=== PATIENT | female | born 2000 | race Caucasian/White ===

== ENCOUNTER 2024-12-06 13:18 | Outpatient (CLI) | payer OTHER, SELFPAY ==
[2024-12-08 03:08] LABS: CA 19-9 6 U/mL (<34); CA-125 19 U/mL (<35)
--- OUTSIDE RECORDS SUMMARY | 2024-12-09 13:31 | XMS_ITS | Referral Summary ---
Author Organization [address] Address [address] [place] [id number] Care Team Providers Care Software Engineer Sales Name Role Phone Unknown, Notinfile Primary Care Provider Unavail able Encounters Date Type Department Care Team Description 10/22/2024 5:49 AM [facility] - 10/22/2024 7:41 AM [facility] Emergency [facility] Emergency Department [address] [place] [address] Pablo Snow MD Gastroenteritis (Primary Dx); Cyst of left ovary Discharge Disposition: Discharge to home or self care from Last 3 Months Allergies Active Allergy Reactions Criticality Noted Date Comments Amoxicillin Rash Medium 01/27/2024 Amoxicillin-Pot Clavulanate Rash,Hives High 09/09/20 20 Medications triamcinolone (KENALOG) 0.1 % lotion triamcinolone acetonide 0.1 % lotion Active tretinoin (RETIN-A) 0.05 % cream tretinoin 0.05 % topical cream Active Lo Loestrin Fe 1 mg-10 mcg (24)/10 mcg (2) tablet per tablet 11/25/19 23 Active mometasone (ELOCON) 0.1 % ointment 11/07/20 22 Active ketoconazole (NIZORAL) 2 % shampoo ketoconazole 2 % shampoo Active ISOtretinoin (ABSORCA) 40 mg capsule Accutane 40 mg capsule Active ISOtretinoin (ABSORICA) 30 mg capsule Accutane 30 mg capsule Active drospirenone-ethin yl estradioL (MAIK,OCELLA) 3-0.03 mg per tablet Take 1 tablet by mouth daily Active norethindrone-e.es tradioL-iron (Lo Loestrin Fe) 1 mg-10 mcg (24)/10 mcg (2) tablet per tablet Lo Loestrin Fe 1 mg-10 mcg (24)/10 mcg (2) tablet Active benzonatate (TESSALON) 100 mg capsuleIndications :Cough Take 1 capsule (100 mg total) by mouth 3 (three) times a day as needed for cough 42 capsule 01/27/20 24 Active ondansetron ODT (ZOFRAN-ODT) 4 mg disintegrating tablet Take 1 tablet (4 mg total) by mouth every 8 (eight) hours as needed for nausea or vomiting 20 tablet 10/22/20 24 Active Active Problems Problem Noted Date Diagnosed Date Arthralgia of right elbow 10/29/2022 Post-traumatic osteoarthritis 09/16/2022 Closed fracture of medial condyle of humerus Immunizations Name Administration Dates Next Due DTaP 07/01/2006,04/27/2001,03/04/2001 ,2000 HPV, Quadrivalent 08/31/2012 Hep A, Pediatric 08/31/2012 Hep B, Unspecified 02/02/2002,2000, 000 IPV 07/01/2006,04/27/2001,03/04/2001 ,2000 MMR 07/01/2006,02/02/2002 Meningococcal MCV4P (Menactra) 06/09/2018,2011 PPD TEST 07/23/2023 Tdap 08/31/2012 Varicella 08/31/2012,07/01/2006 Social History Tobacco Use Types Packs/Day Years Used Date Smoking Tobacco: Never Smokeless Tobacco: Never Tobacco Cessation:Counseling Given: Not Answered Personal Safety Answer Date Recorded Have you ever been in or are you currently in a harmful physical or emotional relationship or is someone making you feel afraid or unsafe? Denies 10/22/2024 Comments No Sex and Gender Information Value Date Recorded Sex Assigned at Not on file Legal Sex Female 4:49 AM [facility] Gender Identity Not on file Sexual Orientation Not on file Last Filed Vital Signs Vital Sign Reading Time Taken Comments Blood Pressure 115/75 10/22/2024 7:35 AM [facility] Pulse 86 10/22/2024 7:35 AM [facility] Temperature 36.2 ??C (97.2 ??F) 10/22/2024 5:15 AM CS T Respiratory Rate 16 10/22/2024 5:15 AM [facility] Oxygen Saturation 100% 10/22/2024 7:35 AM [facility] Inhaled Oxygen Concentration - - Weight 62.3 kg (137 lb 5.6 oz) 10/22/2024 5:15 A M [facility] Height 167.6 cm (5' 6 ) 10/22/2024 5:15 AM [facility] Body Mass Index 22.17 10/22/2024 5:15 AM [facility] Plan of Treatment Not on file Procedures Procedure Name Priority Date/Time Associated Diagnosis Comments CT ABDOMEN PELVIS W CONTRAST ED 10/22/2024 6:31 AM [facility] POCT HCG, URINE Routine 10/22/2024 5:31 AM [facility] INFLUENZA A/B, RSV, AND COVID-19 PCR STAT 10/22/2024 5:27 AM [facility] EGFR STAT 10/22/2024 5:25 AM [facility] URINALYSIS, MICROSCOPIC ONLY STAT 10/22/2024 5:25 AM [facility] DIFFERENTIAL AUTO STAT 10/22/2024 5:2 5 AM [facility] LIPASE STAT 10/22/2024 5:25 AM [facility] COMPREHENSIVE METABOLIC PANEL STAT 10/22/2024 5:25 AM [facility] CBC WITH AUTO DIFFERENTIAL STAT 10/22/2024 5:25 AM [facility] URINALYSIS AND REFLEX TO MICROSCOPIC AND CULTURE STAT 10/22/2024 5:25 AM [facility] from Last 3 Months Results * CT Abdomen Pelvis W Contrast (10/22/2024 6:31 AM [facility]) Anatomical Region Laterality Modality Body N/A Computed Tomogra phy 10/22/2024 6:40 AM [facility] Narrative 10/22/2024 6:43 AM [facility] EXAM DESCRIPTION: ?? CT ABDOMEN PELVIS W CONTRAST REASON FOR STUDY: ?? abdominal cramping, diarrhea, elevated WBC 18.9 ?? TECHNIQUE: CT scan of the abdomen and pelvis performed with intravenous and ?? without ??oral contrast using helical scanning technique with dynamic intravenous contrast injection. Reconstructed coronal and sagittal MPR images reviewed. All images stored on PACS. Automated exposure control was used as a dose optimization technique for this examination. CONTRAST TYPE/DOSE: ?? 100mL of IOVERSOL 350 MG IODINE/ML INTRAVENOUS SYRINGE ?? injected via ?? intravenous COMPARISON: ?? None FINDINGS: LOWER CHEST: ?? No significant pulmonary abnormalities. No effusion. LIVER: ?? Normal size. ??No identified cystic or solid masses. GALLBLADDER: ?? Unremarkable BILE DUCTS: ?? No intrahepatic or extrahepatic ductal dilatation. SPLEEN: ?? Normal size. ??No focal lesions. PANCREAS: ?? No identified cystic or solid masses. No significant calcifications. No adjacent inflammation or peripancreatic fluid collections. Pancreatic duct not dilated. ?? ADRENALS: ?? Normal. KIDNEYS/URINARY TRACT: ?? No identified significant cystic or solid masses. No visualized stones. No hydronephrosis or hydroureter. Symmetric enhancement. ? Urinary bladder is unremarkable. GI: ?? There appears to be mildly prominent enhancement of much of the bowel wall along with fluid throughout much of the bowel. ??This includes small bowel and colon. ?? No dilated bowel is seen to suggest obstruction or ileus. ??This may represent a enteritis. PERITONEUM: ?? No ascites or free air. RETROPERITONEUM: ?? No mass or adenopathy. REPRODUCTIVE: ?? There is a 7 cm cyst in the right posterior pelvis which might originate from the right ovary. ??This appears to be a thin-walled simple cyst. VASCULATURE: ?? No abdominal aortic aneurysm. MUSCULOSKELETAL: ?? No significant abnormality. OTHER: ?? No other abnormality. IMPRESSION: Mildly prominent enhancement of much of the bowel wall along with fluid throughout much of the bowel. This may represent a enteritis. 7 cm cyst in the right posterior pelvis likely originating from the right ovary. ??Follow-up pelvic ultrasound is recommended for further evaluation. THIS IS AN ELECTRONICALLY VERIFIED FINAL REPORT 10/22/2024 6:43 AM - Electronically signed by ??Navid Bradshaw M.D. KH: [id number] D: ??10/22/2024 6:43 AM T: ??10/22/2024 6:43 AM Report ID: [id number] Reading Location: ??[id number] Procedure Note Navid Bradshaw MD - 10/22/2024 EXAM DESCRIPTION: CT ABDOMEN PELVIS W CONTRAST REASON FOR STUDY: abdominal cramping, diarrhea, elevated WBC 18.9 TECHNIQUE: CT scan of the abdomen and pelvis performed with intravenousand without oral contrast using helical scanning technique with dynamic intravenous contrast injection. Reconstructed coronal and sagittal MPRimages reviewed. All images stored on PACS. Automated exposure control was usedas a dose optimization technique for this examination. CONTRAST TYPE/DOSE: 100mL of IOVERSOL 350 MG IODINE/ML INTRAVENOUSSYRINGE injected via intravenous COMPARISON: None FINDINGS: LOWER CHEST: No significant pulmonary abnormalities. Noeffusion. LIVER: Normal size. No identified cystic or solid masses. GALLBLADDER: Unremarkable BILE DUCTS: No intrahepatic or extrahepatic ductal dilatation. SPLEEN: Normal size. No focal lesions. PANCREAS: No identified cystic or solid masses. No significant calcifications. No adjacent inflammation or peripancreatic fluidcollections. Pancreatic duct not dilated. ADRENALS: Normal. KIDNEYS/URINARY TRACT: No identified significant cystic or solid masses.No visualized stones. No hydronephrosis or hydroureter. Symmetricenhancement. Urinary bladder is unremarkable. GI: There appears to be mildly prominent enhancement of much of thebowel wall along with fluid throughout much of the bowel. This includes smallbowel and colon. No dilated bowel is seen to suggest obstruction or ileus.This may represent a enteritis. PERITONEUM: No ascites or free air. RETROPERITONEUM: No mass or adenopathy. REPRODUCTIVE: There is a 7 cm cyst in the right posterior pelvis whichmight originate from the right ovary. This appears to be a thin-walled simplecyst. VASCULATURE: No abdominal aortic aneurysm. MUSCULOSKELETAL: No significant abnormality. OTHER: No other abnormality. IMPRESSION: Mildly prominent enhancement of much of the bowel wall along with fluid throughout much of the bowel. This may represent a enteritis. 7 cm cyst in the right posterior pelvis likely originating from the right ovary. Follow-up pelvic ultrasound is recommended for furtherevaluation. THIS IS AN ELECTRONICALLY VERIFIED FINAL REPORT 10/22/2024 6:43 AM - Electronically signed by Navid Bradshaw M.D. KH: KH Report ID: [id number] Reading Location: [place] [address] Samer Lynne Beach DO IMG CT PROCEDURES Jenniffer l Result * POCT hCG, urine (10/22/2024 5:31 AM [facility]) Pathologist [facility] HCG, ur, POC Negative Negative Lot Number [id number] QC Backgroud Clear Acceptable QC Control Line Acceptable Urine 10/22/2024 5:31 AM [facility] Pablo Snow MD POINT OF CARE TEST ORD ERABLES Final Result * Influenza A/B, RSV, and COVID-19 PCR Nasopharyngeal (10/22/2024 5:27 AM [facility]) [facility] COVID-19 RNA Negative Negative Comment:Testing performed by : [address] [address] Influenza A RNA Negative Negative [facility] Comment:Testing performed by : [address] [address] Influenza B RNA Negative Negative [facility] Comment:Testing performed by : [address] [address] RSV RNA Negative Negative [facility] Comment: Interpretive data: Testing performed by [facility]. This test is performed using the NPS Xpert Xpress CoV-2/Flu/RSV plus assay. This is a multiplex, real-time reverse transcriptase PCR assay intended for the qualitative detection of nucleic acid from SARS-CoV-2, influenza A, influenza B, and respiratory syncytial virus. This assay has been cleared by the [place] Food and Drug administration. The performance characteristics have been verified by the [facility]. ??Results must be considered in the clinical context, and a negative result does not rule out infection. Interpretive Data last revised 2023 Testing performed by: [facility], [address] [place] [address]., [address] Nasopharyngeal 10/22/2024 5: 27 AM [facility] 10/22/2024 5:30 AM [facility] Narrative [facility] - 10/22/2024 6:09 AM [facility] Is the Patient experiencing symptoms consistent with COVID?->Yes us Pablo Snow MD LAB MICROBIOLOGY - GEN ERAL ORDERABLES Final Result [facility] [address] [facility] Department [place] [address] * eGFR (10/22/2024 5:25 AM [facility]) eGFR >90 >=60 mL/min/1. 73 m2 Comment: Interpretive Data Reference Interval Normal ?>/= 90 mL/min/1.73m2 Mildly decreased* ? 60 - 89 mL/min/1.73m2 Mildly to moderately decreased ?45 - 59 mL/min/1.73m2 Moderately to severely decreased ??30 - 44 mL/min/1.73m2 Severely decreased ?15 - 29 mL/min/1.73m2 Kidney Failure ?< 15 ??mL/min/1.73m2 *Relative to young adult level Estimated glomerular filtration rate is determined by the 2020 CKD-EPI equation recommended by the National Kidney Foundation (A Unifying Approach to GFR Estimation: Recommendations of the NKF-ASK Task Force on Reassessing the Inclusion of Race in Diagnosing Kidney Disease, JASN 202). The CKD-EPI equation should not be used for patients with unstable renal function and has not been validated in children and those over 70. Current interpretive data was last reviewed 2021. Testing performed by: [facility], [address] [place] [address]., [address] Blood 10/22/2024 5:25 AM [facility] 10/22/2024 5:30 AM [facility] us Pablo Snow MD LAB BLOOD ORDERABLES F inal Result [facility] [address] [facility] Department [place] [address] * (ABNORMAL) Differential, auto (10/22/2024 5:25 AM [facility]) Neutrophil abs 17.4(H) 1.5 - 6.5 K/cumm Comment:Testing performed by : [address] [address] Imm gran abs 0.1 0.0 - 0.1 K/cumm BEN Comment:Testing performed by : [address] [address] Lymphocyte abs 0.4(L) 0.8 - 3.3 K/cumm BEN Comment:Testing performed by : [address] [address] Monocyte abs 1.0(H) 0.2 - 0.8 K/cumm BEN Comment:Testing performed by : [address] [address] Eosinophil abs 0.0 0.0 - 0.5 K/cumm BEN Comment:Testing performed by : [address] [address] Basophil abs 0.1 0.0 - 0.1 K/cumm BEN Comment:Testing performed by : [address] [address] Neutrophil pct 91.9 % BEN Comment: Interpretive Data Percent cell count reference ranges are not reported, since discordance with absolute values may lead to misinterpretation of CBC data. Current Interpretive Data was last revised on 2018. Testing performed by: [address] [address] Imm gran pct 0.4 % BEN Comment: Interpretive Data Percent cell count reference ranges are not reported, since discordance with absolute values may lead to misinterpretation of CBC data. Current Interpretive Data was last revised on 2018. Testing performed by: [address] [address] Lymphocyte pct 2.1 % [facility] Comment: Interpretive Data Percent cell count reference ranges are not reported, since discordance with absolute values may lead to misinterpretation of CBC data. Current Interpretive Data was last revised on 2018. Testing performed by: [address] [address] Monocyte pct 5.1 % [facility] Comment: Interpretive Data Percent cell count reference ranges are not reported, since discordance with absolute values may lead to misinterpretation of CBC data. Current Interpretive Data was last revised on 2018. Testing performed by: [address] [address] Eosinophil pct 0.2 % [facility] Comment: Interpretive Data Percent cell count reference ranges are not reported, since discordance with absolute values may lead to misinterpretation of CBC data. Current Interpretive Data was last revised on 2018. Testing performed by: [address] [address] Basophil pct 0.3 % [facility] Comment: Interpretive Data Percent cell count reference ranges are not reported, since discordance with absolute values may lead to misinterpretation of CBC data. Current Interpretive Data was last revised on 2018. Testing performed by: [address] [address] Blood 10/22/2024 5:25 AM [facility] 10/22/2024 5:30 AM [facility] us Pablo Snow MD LAB BLOOD ORDERABLES F inal Result [facility] [address] [facility] Department [place] [address] * (ABNORMAL) Urinalysis reflex to microscopic and culture Urine (10/22/2024 5:25 AM [facility]) Color, ur Yellow Yellow Comment:Testing performed by : [address] [address] Clarity, ur Cloudy(A) Clear BEN Comment:Testing performed by : [address] [address] Specific gravity, ur 1.029 1.003 - 1.030 BEN Comment:Testing performed by : [address] [address] pH, urine 7.5 BEN Comment: Interpretive Data ? Urine pH is affected by diet, medications, systemic acid-base disturbances, and renal tubular function. ??pH may affect urinary stone formation. ??For example, urine pH below 6.0 may help reduce the tendency for calcium phosphate stones and pH greater than 6.0 may reduce the tendency for uric acid stone formation. Source: [facility] [employer] Current Interpretive Data was last revised on 2017 Testing performed by: [address] [address] Protein, ur ql 2+(A) Negative BEN Comment:Testing performed by : [address] [address] Glucose, ur ql Negative Negative BEN Comment:Testing performed by : [address] [address] Ketones, ur Negative Negative BEN Comment:Testing performed by : [address] [address] Bilirubin, ur Negative Negative BEN Comment:Testing performed by : [address] [address] Blood, ur Negative Negative BEN Comment:Testing performed by : [address] [address] Urobilinogen, ur <2.0 <2.0 mg/dL BEN Comment:Testing performed by : [address] [address] Nitrite, ur Negative Negative BEN Comment:Testing performed by : [address] [address] Leukocyte esterase, ur Negative Negative BEN Comment:Testing performed by : [address] [address] UA reflex comment Reflex to microscopic UA will be performed. [facility] Comment:Testing performed by : [address] [address] Urine 10/22/2024 5:25 AM [facility] 10/22/2024 5:30 AM [facility] us Pablo Snow MD LAB MICROBIOLOGY - GEN ERAL ORDERABLES Final Result [facility] [address] [facility] Department [place] [address] * (ABNORMAL) CBC with auto differential (10/22/2024 5:25 AM [facility]) WBC 18.9(H) 3.8 - 9.9 K/cumm Comment:Testing performed by : [address] [address] Hgb 17.0(H) 11.9 - 15.5 g/dL BEN Comment:Testing performed by : [address] [address] Hct 49.4(H) 35.6 - 45.5 % [facility] Comment:Testing performed by : [address] [address] Plt 362 150 - 400 K/cumm BEN Comment:Testing performed by : [address] [address] MPV 9.8 9.1 - 12.3 fL BEN Comment:Testing performed by : [address] [address] RBC 5.72(H) 3.90 - 5.20 M/cumm BEN Comment:Testing performed by : [address] [address] MCV 86.4 81.3 - 96.4 fL [facility] Comment:Testing performed by : [address] [address] MCH 29.7 27.1 - 33.3 pg [facility] Comment:Testing performed by : [address], [address] MCHC 34.4 32.3 - 35.7 g/dL [facility] Comment:Testing performed by : [address] [address] RDW CV 12.0 11.1 - 14.9 % [facility] Comment:Testing performed by : [address], [place]., [address] RDW SD 37.6 35.7 - 48.1 fL BEN Comment:Testing performed by : [facility] [address] [place] [address], [place]., [address] NRBC abs 0.00 0.00 - 0.01 K/cumm BEN Comment:Testing performed by : [address] [address] Blood (Blood, Venous) 10/22/2024 5:25 AM [facility] 10/22/2024 5:30 AM [facility] us Pablo Snow MD LAB BLOOD ORDERABLES F inal Result [facility] [address] [facility] Department [place] [address] * (ABNORMAL) Urinalysis, microscopic only (10/22/2024 5:25 AM [facility]) WBC, ur 0-5 0 - 5 /HPF Comment:Testing performed by : [address] [address] RBC, ur 3-5(A) 0 - 2 /HPF BEN Comment:Testing performed by : [address] [address] Epithelial cells, squamous, ur >50(A) 0 - 5 /HPF BEN Comment:Testing performed by : [address] [address] Mucous, ur Present(A) [facility] Comment:Testing performed by : [address] [address] Culture Reflex Comment Reflex conditions for urine culture (WBC >10) not met. [facility] Comment:Testing performed by : [address] [address] Urine 10/22/2024 5:25 AM [facility] 10/22/2024 5:30 AM [facility] Pablo Snow MD LAB URINE ORDERABLES F inal Result Performing Organization Address City/[facility] Co de Phone Number [address] [address] * Lipase (10/22/2024 5:25 AM RAD[facility]OCKEY) Pathologist [facility] Lipase 20 10 - 99 Units/L Comment:Testing performed by : [address] [address] Blood (Blood, Venous) 10/22/2024 5:25 AM [facility] 10/22/2024 5:30 AM [facility] Pablo Snow MD LAB BLOOD ORDERABLES F inal Result Performing Organization Address [facility] Co de Phone Number [address] [address] * (ABNORMAL) Comprehensive metabolic panel (10/22/2024 5:25 AM RADIO DISC [facility]OCKEY) Pathologist [facility] Sodium 140 135 - 145 mmol/L Comment:Testing performed by : [address] [address] Potassium, pl 4.5 3.3 - 4.9 mmol/L BEN Comment:Testing performed by : [address] [address] Chloride 102 97 - 110 mmol/L BEN Comment:Testing performed by : [address] [address] CO2 26 22 - 32 mmol/L BEN Comment:Testing performed by : [address] [address] Anion gap 12 2 - 15 mmol/L BEN Comment:Testing performed by : [address] [address] BUN 16 6 - 25 mg/dL BEN Comment:Testing performed by : [address] [address] Creatinine 0.80 0.60 - 1.10 mg/dL BEN Comment:Testing performed by : [address] [address] Glucose 149 70 - 199 mg/dL BEN Comment: Interpretive Data Fasting glucose >/= 126 mg/dl is diagnostic for diabetes. ?? Fasting is defined as no caloric intake for at least 8 hours. Fasting glucose between 100 mg/dl to 125 mg/dl is diagnostic of prediabetes. In a patient with classic symptoms of hyperglycemia or hyperglycemic crisis, a random glucose >/= 200 mg/dl is diagnostic for diabetes. In the absence of unequivocal hyperglycemia, results should be confirmed by repeat testing. The classification and Diagnosis of Diabetes Diabetes Care 2021; 46: S19-S40. Current interpretive data was last revised 2022. Testing performed by: [address] [address] Calcium 10.5(H) 8.5 - 10.3 mg/dL BEN Comment:Testing performed by : [address] [address] Bilirubin, total 1.1 0.1 - 1.2 mg/dL [facility] Comment:Testing performed by : [address] [address] Protein, pl 7.6 6.5 - 8.5 g/dL BEN Comment:Testing performed by : [address] [address] Albumin 5.2(H) 3.5 - 5.0 g/dL [facility] Comment:Testing performed by : [address] [address] Alk phos 80 40 - 130 Units/L BEN Comment:Testing performed by : [address] [address] ALT 45 7 - 45 Units/L BEN Comment:Testing performed by : [address] [address] AST 32 10 - 45 Units/L [facility] Comment:Testing performed by : [facility], [address] [place] [address], [place]., [address] Blood 10/22/2024 5:25 AM [facility] 10/22/2024 5:30 AM [facility]OCKEY us Pablo Snow MD LAB BLOOD ORDERABLES F inal Result [facility] [address] [facility] Department [place] [address] from Last 3 Months Insurance [facility] Care Teams Software Engineer Sales Relationship Specialty Start Date End Date Unknown, Notinfile PCP - General 01/27/24
--- OUTSIDE RECORDS SUMMARY | 2024-12-09 13:31 | XMS_ITS | Referral Summary ---
Author Organization [facility] Address [address] [place] [address] Care Team Providers Care Children'[address] Magistrate Name Role Phone Unavailable Primary Care Provider Unavailabl e Source Comments [facility],non-owned Affiliates and Associated Physician Practices is amultiple site organization consisting of ambulatory clinics and hospital sitesin [place], [place], [place] and [place]. This disclosure is being madepursuant to the Care Everywhere program and may not contain all information available regarding this patient. Last updated 18.[employer] [facility] Allergies No known active allergies Medications * Be aware that medications may not be up to date on this document. Alwaysverify current medications with the patient. Medication Sig Dispensed Refills Start Date End Date Status ISOtretinoin (ACCUTANE PO) Active Social History Tobacco Use Types Packs/Day Years Used Date Smoking Tobacco: Never Smokeless Tobacco: Never Alcohol Use Standard Drinks/Week Comments Never 0 (1 standard drink = 0.6 oz pur e alcohol) Sex and Gender Information Value Date Recorded Sex Assigned at Not on file Gender Identity Not on file Sexual Orientation Not on file Last Filed Vital Signs Vital Sign Reading Time Taken Comments Blood Pressure 116/70 12/17/2019 4:25 PM CONCESSION WORKER Pulse 74 12/17/2019 4:25 PM CONCESSION WORKER Temperature 37.2 ??C (99 ??F) 12/17/2019 4:25 PM CONCESSION WORKER Respiratory Rate 16 12/17/2019 4:25 PM CONCESSION WORKER Oxygen Saturation 98% 12/17/2019 4:25 PM CONCESSION WORKER Inhaled Oxygen Concentration - - Weight 62.6 kg (138 lb) 12/17/2019 4:25 PM CONCESSION WORKER Height 167.6 cm (5' 6 ) 12/17/2019 4:25 PM CONCESSION WORKER Body Mass Index 22.27 12/17/2019 4:25 PM CONCESSION WORKER Plan of Treatment Not on file Administered Medications
--- OUTSIDE RECORDS SUMMARY | 2024-12-09 13:31 | XMS_ITS | Clinical Summary ---
Author Organization [facility] Address [address] [place] [address] Care Team Providers Care Freight Car Loader Name Role Phone Unavailable Primary Care Provider Unavailabl e Allergies Active Allergy Reactions Criticality Noted Date Comments Amoxicillin-Pot Clavulanate Hives High 09/09/20 20 Medications drospirenone-eth inyl estradioL (MAIK 28) 3-0.03 mg tablet Take 1 Tablet by mouth daily. Active Active Problems No known active problems Social History Tobacco Use Types Packs/Day Years Used Date Smoking Tobacco: Never Smokeless Tobacco: Never Alcohol Use Standard Drinks/Week Comments Yes 0 (1 standard drink = 0.6 oz pur e alcohol) Comments No Sex and Gender Information Value Date Recorded Sex Assigned at Not on file Legal Sex Female 11:59 AM CDT Gender Identity Not on file Sexual Orientation Not on file Last Filed Vital Signs Vital Sign Reading Time Taken Comments Blood Pressure 147/95 09/09/2020 12:08 PM CDT Pulse 79 09/09/2020 12:08 PM CDT Temperature 36.6 ??C (97.9 ??F) 09/09/2020 12:08 PM C DT Respiratory Rate 19 09/09/2020 12:08 PM CDT Oxygen Saturation 100% 09/09/2020 12:08 PM CDT Inhaled Oxygen Concentration - - Weight 60.3 kg (133 lb) 09/09/2020 12:08 PM CDT Height 167.6 cm (5' 6 ) 09/09/2020 12:08 PM CDT Body Mass Index 21.47 09/09/2020 12:08 PM CDT Plan of Treatment Health Maintenance Due Date Last Done Comments HPV VACCINES (1 - 3-dose series) 2015 DTAP/TDAP/TD VACCINES (1 - Tdap) 2019 HEPATITIS B VACCINES (1 of 3 - 19+ 3-dose series) 2019 CERVICAL CANCER SCREENING 2021 INFLUENZA VACCINE (#1) 2024 PNEUMOCOCCAL VACCINE 0-64 YEARS Aged Out No longer eligible based on patient's age to complete this topic Insurance [employer]
--- OUTSIDE RECORDS SUMMARY | 2024-12-09 13:31 | XMS_ITS | Clinical Summary ---
Author Organization [facility] Address [address] [place] [address] Care Team Providers Care Finisher Merchant Products Name Role Phone Unavailable Primary Care Provider Unavailabl e Source Comments [facility],non-owned Affiliates and Associated Physician Practices is amultiple site organization consisting of ambulatory clinics and hospital sitesin [place], [place] and [place]. This disclosure is being madepursuant to the Care Everywhere program and may not contain all information available regarding this patient. Last updated 18.[employer] [facility] Allergies No known active allergies Medications * [...] Comments Blood Pressure 116/70 12/17/2019 4:25 PM C2 TACTICAL ANALYSIS TECHNICIAN Pulse 74 12/17/2019 4:25 PM C2 TACTICAL ANALYSIS TECHNICIAN Temperature 37.2 ??C (99 ??F) 12/17/2019 4:25 PM C2 TACTICAL ANALYSIS TECHNICIAN Respiratory Rate 16 12/17/2019 4:25 PM C2 TACTICAL ANALYSIS TECHNICIAN Oxygen Saturation 98% 12/17/2019 4:25 PM C2 TACTICAL ANALYSIS TECHNICIAN Inhaled Oxygen Concentration - - Weight 62.6 kg (138 lb) 12/17/2019 4:25 PM C2 TACTICAL ANALYSIS TECHNICIAN Height 167.6 cm (5' 6 ) 12/17/2019 4:25 PM C2 TACTICAL ANALYSIS TECHNICIAN Body Mass Index 22.27 12/17/2019 4:25 PM C2 TACTICAL ANALYSIS TECHNICIAN Plan of Treatment Health Maintenance Due Date Last Done Comments PAP SMEAR 2000 HIV SCREENING 2015 HPV VACCINE (1 - 3-dose series) 2015 CHLAMYDIA/GONORRHEA SCREENING 2016 HEPATITIS C SCREENING 10/20/2018 DTAP/TDAP/TD VACCINES (1 - Tdap) 2019 HEPATITIS B VACCINE (1 of 3 - 19+ 3-dose series) 2019 COVID-19 VACCINE (3 - 2023-2 5 season) 2024 03/15/2021, 02/15/2021 INFLUENZA VACCINE (#1) 2024 DEPRESSION SCREENING 11/17/2024 ZOSTER VACCINE (1 of 2) 2050 HIB VACCINE Aged Out No longer eligi ble based on patient's age to complete this topic MENINGOCOCCAL (Group B) VACCINE Aged Out No longer eligible b ased on patient's age to complete this topic MENINGOCOCCAL VACCINE Aged Out No danelle zoltan eligible based on patient's age to complete this topic PNEUMOCOCCAL VACCINE Aged Out No long er eligible based on patient's age to complete this topic
--- OUTSIDE RECORDS SUMMARY | 2024-12-09 13:31 | XMS_ITS | Patient Health Summary ---
Author Organization [facility] Address [address] [place] [address] Care Team Providers Care Bowling Ball Mold Assembler Name Role Phone Unavailable Primary Care Provider Unavailabl e Note from [facility],non-owned Affiliates and Associated Physician Practices is amultiple site organization consisting of ambulatory clinics and hospital sitesin [place], [place], [place] and [place]. This disclosure is being madepursuant to the Care Everywhere program and may not contain all information available regarding this patient. Last updated 18.[facility] Allergies No known active allergies Medications * Be aware that medications may not be up to date on this document. Alwaysverify current medications with the patient. * ISOtretinoin (ACCUTANE PO) Social History Tobacco Use Types Packs/Day Years [...] Comments Blood Pressure 116/70 12/17/2019 4:25 PM PHONE TRIAGE SPECIALIST Pulse 74 12/17/2019 4:25 PM PHONE TRIAGE SPECIALIST Temperature 37.2 ??C (99 ??F) 12/17/2019 4:25 PM PHONE TRIAGE SPECIALIST Respiratory Rate 16 12/17/2019 4:25 PM PHONE TRIAGE SPECIALIST Oxygen Saturation 98% 12/17/2019 4:25 PM PHONE TRIAGE SPECIALIST Inhaled Oxygen Concentration - - Weight 62.6 kg (138 lb) 12/17/2019 4:25 PM PHONE TRIAGE SPECIALIST Height 167.6 cm (5' 6 ) 12/17/2019 4:25 PM PHONE TRIAGE SPECIALIST Body Mass Index 22.27 12/17/2019 4:25 PM PHONE TRIAGE SPECIALIST
--- OUTSIDE RECORDS SUMMARY | 2024-12-09 13:31 | XMS_ITS | Clinical Summary ---
Author Organization [place] [address] [place] Address [address] [place] [id number] Care Team Providers Care Proof Technician Helper Name Role Phone Unknown, Notinfile Primary Care Provider Unavail able Allergies Active Allergy Reactions Criticality Noted Date [...] Closed fracture of medial condyle of humerus Encounters Date Type Department Care Team Description 10/22/2024 5:49 AM CORRECTIONAL NURSE - 10/22/2024 7:41 AM CORRECTIONAL NURSE Emergency [facility] Emergency Department [address] [place] [address] Pablo Snow MD Gastroenteritis (Primary Dx); Cyst of left ovary Discharge Disposition: Discharge to home or self care from Last 3 Months Immunizations Name Administration Dates Next Due DTaP [...] on file Legal Sex Female 4:49 AM CORRECTIONAL NURSE Gender Identity Not on file Sexual Orientation Not on file Obstetrics History Last Filed Vital Signs Vital Sign Reading Time Taken Comments Blood Pressure 115/75 10/22/2024 7:35 AM CORRECTIONAL NURSE Pulse 86 10/22/2024 7:35 AM CORRECTIONAL NURSE Temperature 36.2 ??C (97.2 ??F) 10/22/2024 5:15 AM CS T Respiratory Rate 16 10/22/2024 5:15 AM CORRECTIONAL NURSE Oxygen Saturation 100% 10/22/2024 7:35 AM CORRECTIONAL NURSE Inhaled Oxygen Concentration - - Weight 62.3 kg (137 lb 5.6 oz) 10/22/2024 5:15 A M CORRECTIONAL NURSE Height 167.6 cm (5' 6 ) 10/22/2024 5:15 AM CORRECTIONAL NURSE Body Mass Index 22.17 10/22/2024 5:15 AM CORRECTIONAL NURSE Plan of Treatment Health Maintenance Due Date Last Done Comments Cervical Cancer Screening 2000 Depression Screening 2000 Hepatitis C Screening 2000 HPV Vaccines (2 - 2-dose series) 03/01/2013 08/31/2012 Regular Well Visit/Exam 18-64 2018 DTaP/Tdap/Td Vaccine (6 - Td or Tdap) 08/31/2022 08/31/2012, 07/01/2006, 04/27/2001, Additional history exists Covid-19 Vaccine ( season) 2024 06/28/2022, 03/15/2021, 02/15/2021 Influenza Vaccine (#1) 2024 08/21/2023 Varicella Vaccines Completed 08/31/2012, 07/01/2006 Pneumococcal vaccine <65 Aged Out No longer eligible based on patient's age to complete this topic Procedures Procedure Name Priority Date/Time Associated Diagnosis Comments CT ABDOMEN PELVIS W CONTRAST ED 10/22/2024 6:31 AM CORRECTIONAL NURSE POCT HCG, URINE Routine 10/22/2024 5:31 AM CORRECTIONAL NURSE INFLUENZA A/B, RSV, AND COVID-19 PCR STAT 10/22/2024 5:27 AM CORRECTIONAL NURSE EGFR STAT 10/22/2024 5:25 AM CORRECTIONAL NURSE URINALYSIS, MICROSCOPIC ONLY STAT 10/22/2024 5:25 AM CORRECTIONAL NURSE DIFFERENTIAL AUTO STAT 10/22/2024 5:2 5 AM CORRECTIONAL NURSE LIPASE STAT 10/22/2024 5:25 AM CORRECTIONAL NURSE COMPREHENSIVE METABOLIC PANEL STAT 10/22/2024 5:25 AM CORRECTIONAL NURSE CBC WITH AUTO DIFFERENTIAL STAT 10/22/2024 5:25 AM CORRECTIONAL NURSE URINALYSIS AND REFLEX TO MICROSCOPIC AND CULTURE STAT 10/22/2024 5:25 AM CORRECTIONAL NURSE from Last 3 Months Results * CT Abdomen Pelvis W Contrast (10/22/2024 6:31 AM CORRECTIONAL NURSE) Anatomical Region Laterality Modality Body N/A Computed Tomogra phy 10/22/2024 6:40 AM CORRECTIONAL NURSE Narrative 10/22/2024 6:43 AM CORRECTIONAL NURSE EXAM DESCRIPTION: ?? CT ABDOMEN PELVIS W [...] AM T: ??10/22/2024 6:43 AM Report ID: [id number] Reading Location: [id number] Procedure Note Navid Bradshaw MD - 10/22/2024 [...] Electronically signed by Navid Bradshaw M.D. KH: [id number] Report ID: [id number] Reading Location: [place] [address] [place] DO IMG CT PROCEDURES Jenniffer l Result * POCT hCG, urine (10/22/2024 5:31 AM CORRECTIONAL NURSE) [facility] HCG, ur, POC Negative Negative Lot Number [id number] QC Backgroud Clear Acceptable QC Control Line Acceptable Urine 10/22/2024 5:31 AM CORRECTIONAL NURSE Pablo Snow MD POINT OF CARE TEST ORD ERABLES Final Result * Influenza A/B, RSV, and COVID-19 PCR Nasopharyngeal (10/22/2024 5:27 AM CORRECTIONAL NURSE) [facility] COVID-19 RNA Negative Negative Comment:Testing performed by : [address] [address] Influenza A RNA Negative Negative [facility] [place] Comment:Testing performed by : [address] [place]., [address] Influenza B RNA Negative Negative BEN Comment:Testing performed by : [address] [address] RSV RNA Negative Negative BEN Comment: Interpretive data: Testing performed by [facility]. This test is performed using the [employer] Xpert Xpress CoV-2/Flu/RSV plus assay. This is a multiplex, real-time reverse transcriptase PCR assay intended for the qualitative detection of nucleic acid from SARS-CoV-2, influenza A, influenza B, and respiratory syncytial virus. This assay has been cleared by the [place] Food and Drug administration. The performance characteristics have been verified by the [facility]. ??Results must be considered in the clinical context, and a negative result does not rule out infection. Interpretive Data last revised 2023 Testing performed by: [address] [address] Nasopharyngeal 10/22/2024 5: 27 AM CORRECTIONAL NURSE 10/22/2024 5:30 AM CORRECTIONAL NURSE Narrative BEN - 10/22/2024 6:09 AM CORRECTIONAL NURSE Is the Patient experiencing symptoms consistent with COVID?->Yes us Pablo Snow MD LAB MICROBIOLOGY - GEN ERAL ORDERABLES Final Result [facility] [address] Department [place] [address] * eGFR (10/22/2024 5:25 AM CORRECTIONAL NURSE) Pathologist [facility] eGFR >90 >=60 mL/min/1. 73 m2 Comment: [...] of Race in Diagnosing Kidney Disease, JASN 2020). The CKD-EPI equation should not be used for patients with unstable renal function and has not been validated in children and those over 70. Current interpretive data was last reviewed 2021. Testing performed by: [address] [address] Blood 10/22/2024 5:25 AM CORRECTIONAL NURSE 10/22/2024 5:30 AM CORRECTIONAL NURSE us Pablo Snow MD LAB BLOOD ORDERABLES F inal Result [facility] [address] Department [place] [address] * (ABNORMAL) Differential, auto (10/22/2024 5:25 AM CORRECTIONAL NURSE) Neutrophil abs 17.4(H) 1.5 - 6.5 K/cumm Comment:Testing performed by : [address] [address] Imm gran abs 0.1 0.0 - 0.1 K/cumm BEN Comment:Testing performed by : [address] [address] Lymphocyte abs 0.4(L) 0.8 - 3.3 K/cumm BEN Comment:Testing performed by : [address] [address] Monocyte abs 1.0(H) 0.2 - 0.8 K/cumm BEN Comment:Testing performed by : [address] [address] Eosinophil abs 0.0 0.0 - 0.5 K/cumm [facility] Comment:Testing performed by : [address] [address] Basophil abs 0.1 0.0 - 0.1 K/cumm [facility] Comment:Testing performed by : [address] [address] Neutrophil pct 91.9 % [facility] Comment: Interpretive Data Percent cell count reference ranges are not reported, since discordance with absolute values may lead to misinterpretation of CBC data. Current Interpretive Data was last revised on 2018. Testing performed by: [address] [address] Imm gran pct 0.4 % [facility] Comment: Interpretive Data Percent cell count reference ranges are not reported, since discordance with absolute values may lead to misinterpretation of CBC data. Current Interpretive Data was last revised on 2018. Testing performed by: [address] [address] Lymphocyte pct 2.1 % [facility] Comment: Interpretive Data Percent cell count reference ranges are not reported, since discordance with absolute values may lead to misinterpretation of CBC data. Current Interpretive Data was last revised on 2018. Testing performed by: [address] [address] Monocyte pct 5.1 % [facility] Comment: Interpretive Data Percent cell count reference ranges are not reported, since discordance with absolute values may lead to misinterpretation of CBC data. Current Interpretive Data was last revised on 2018. Testing performed by: [address] [address] Eosinophil pct 0.2 % [facility] Comment: Interpretive Data Percent cell count reference ranges are not reported, since discordance with absolute values may lead to misinterpretation of CBC data. Current Interpretive Data was last revised on 2018. Testing performed by: [address] [address] Basophil pct 0.3 % [facility] Comment: Interpretive Data Percent cell count reference ranges are not reported, since discordance with absolute values may lead to misinterpretation of CBC data. Current Interpretive Data was last revised on 2018. Testing performed by: [address] [address] Blood 10/22/2024 5:25 AM CORRECTIONAL NURSE 10/22/2024 5:30 AM CORRECTIONAL NURSE us Pablo Snow MD LAB BLOOD ORDERABLES F inal Result [facility] [address] [facility] Department [place] [address] * (ABNORMAL) Urinalysis reflex to microscopic and culture Urine (10/22/2024 5:25 AM CORRECTIONAL NURSE) Color, ur Yellow Yellow Comment:Testing performed by : [address] [address] Clarity, ur Cloudy(A) Clear BEN Comment:Testing performed by : [address] [address] Specific gravity, ur 1.029 1.003 - 1.030 BEN Comment:Testing performed by : [address] [address] pH, urine 7.5 BEN Comment: Interpretive Data ? Urine pH is affected by diet, medications, systemic acid-base disturbances, and renal tubular function. ??pH may affect urinary stone formation. ??For example, urine pH below 6.0 may help reduce the tendency for calcium phosphate stones and pH greater than 6.0 may reduce the tendency for uric acid stone formation. Source: [facility] Current Interpretive Data was last revised on 2017 Testing performed by: [address] [address] Protein, ur ql 2+(A) Negative BEN Comment:Testing performed by : [address] [address] Glucose, ur ql Negative Negative BEN Comment:Testing performed by : [address] [address] Ketones, ur Negative Negative BEN Comment:Testing performed by : [address] [address] Bilirubin, ur Negative Negative [facility] [place] Comment:Testing performed by : [address], [place]., [address] Blood, ur Negative Negative [facility] [place] Comment:Testing performed by : [address], [place]., [address] Urobilinogen, ur <2.0 <2.0 mg/dL [facility] [place] Comment:Testing performed by : [address], [place]., [address] Nitrite, ur Negative Negative [facility] [place] Comment:Testing performed by : [address], [place]., [address] Leukocyte esterase, ur Negative Negative [facility] [place] Comment:Testing performed by : [address], [place]., [address] UA reflex comment Reflex to microscopic UA will be performed. [facility] Comment:Testing performed by : [address], [place]., [address] Urine 10/22/2024 5:25 AM CORRECTIONAL NURSE 10/22/2024 5:30 AM CORRECTIONAL NURSE us Pablo Snow MD LAB MICROBIOLOGY - GEN ERAL ORDERABLES Final Result [facility] [address] [facility] Department [place] [address] * (ABNORMAL) CBC with auto differential (10/22/2024 5:25 AM CORRECTIONAL NURSE) WBC 18.9(H) 3.8 - 9.9 K/cumm Comment:Testing performed by : [address], [place]., [address] Hgb 17.0(H) 11.9 - 15.5 g/dL [facility] [place] Comment:Testing performed by : [address] [address] Hct 49.4(H) 35.6 - 45.5 % [facility] Comment:Testing performed by : [address], [place]., [address] Plt 362 150 - 400 K/cumm [facility] Comment:Testing performed by : [address], [address] MPV 9.8 9.1 - 12.3 fL [facility] [place] Comment:Testing performed by : [address], [address] RBC 5.72(H) 3.90 - 5.20 M/cumm [facility] Comment:Testing performed by : [address], [address] MCV 86.4 81.3 - 96.4 fL BEN Comment:Testing performed by : [address], [address] MCH 29.7 27.1 - 33.3 pg [facility] [place] Comment:Testing performed by : [address], [address] MCHC 34.4 32.3 - 35.7 g/dL BEN Comment:Testing performed by : [address], [address] RDW CV 12.0 11.1 - 14.9 % BEN Comment:Testing performed by : [address], [address] RDW SD 37.6 35.7 - 48.1 fL BEN Comment:Testing performed by : [address], [address] NRBC abs 0.00 0.00 - 0.01 K/cumm BEN Comment:Testing performed by : [address], [address] Blood (Blood, Venous) 10/22/2024 5:25 AM CORRECTIONAL NURSE 10/22/2024 5:30 AM CORRECTIONAL NURSE us Pablo Snow MD LAB BLOOD ORDERABLES F inal Result [facility] [address] [facility] Department of Laboratories [place], [place] [id number] * (ABNORMAL) Urinalysis, microscopic only (10/22/2024 5:25 AM CORRECTIONAL NURSE) WBC, ur 0-5 0 - 5 /HPF Comment:Testing performed by : [facility], [address] [place] [address]., [address] RBC, ur 3-5(A) 0 - 2 /HPF BEN Comment:Testing performed by : [address], [place]., [address] Epithelial cells, squamous, ur >50(A) 0 - 5 /HPF BEN Comment:Testing performed by : [facility], [address] [place] [address], [place]., [address] Mucous, ur Present(A) BEN Comment:Testing performed by : [address], [place]., [address] Culture Reflex Comment Reflex conditions for urine culture (WBC >10) not met. BEN Comment:Testing performed by : [address] [address] Urine 10/22/2024 5:25 AM CORRECTIONAL NURSE 10/22/2024 5:30 AM CORRECTIONAL NURSE Pablo Snow MD LAB URINE ORDERABLES F inal Result Performing Organization Address [facility] Co de Phone Number [address] [place] [address] * Lipase (10/22/2024 5:25 AM CORRECTIONAL NURSE) Pathologist [facility] Lipase 20 10 - 99 Units/L Comment:Testing performed by : [address] [address] Blood (Blood, Venous) 10/22/2024 5:25 AM CORRECTIONAL NURSE 10/22/2024 5:30 AM CORRECTIONAL NURSE Pablo Snow MD LAB BLOOD ORDERABLES F inal Result Performing Organization Address City/[facility] Co de Phone Number [facility] [place] [address] * (ABNORMAL) Comprehensive metabolic panel (10/22/2024 5:25 AM CORRECTIONAL NURSE) Sodium 140 135 - 145 mmol/L Comment:Testing performed by : [address], [place]., [address] Potassium, pl 4.5 3.3 - 4.9 mmol/L BEN Comment:Testing performed by : [address], [place]., [address] Chloride 102 97 - 110 mmol/L BEN Comment:Testing performed by : [address], [place]., [address] CO2 26 22 - 32 mmol/L BEN Comment:Testing performed by : [address], [place]., [address] Anion gap 12 2 - 15 mmol/L BEN Comment:Testing performed by : [address], [place]., [address] BUN 16 6 - 25 mg/dL BEN Comment:Testing performed by : [address], [place]., [address] Creatinine 0.80 0.60 - 1.10 mg/dL [facility] Comment:Testing performed by : [address], [place]., [address] Glucose 149 70 - 199 mg/dL [facility] Comment: Interpretive Data Fasting glucose >/= 126 [...] was last revised 2022. Testing performed by: [address] [address] Calcium 10.5(H) 8.5 - 10.3 mg/dL BEN Comment:Testing performed by : [address], [place]., [address] Bilirubin, total 1.1 0.1 - 1.2 mg/dL [facility] [place] Comment:Testing performed by : [facility], [address] [place] [address]., [address] Protein, pl 7.6 6.5 - 8.5 g/dL [facility] [place] Comment:Testing performed by : [address] [address] Albumin 5.2(H) 3.5 - 5.0 g/dL BEN Comment:Testing performed by : [address] [address] Alk phos 80 40 - 130 Units/L BEN Comment:Testing performed by : [address] [address] ALT 45 7 - 45 Units/L BEN Comment:Testing performed by : [address] [address] AST 32 10 - 45 Units/L BEN Comment:Testing performed by : [address] [address] Blood 10/22/2024 5:25 AM CORRECTIONAL NURSE 10/22/2024 5:30 AM CORRECTIONAL NURSE us Pablo Snow MD LAB BLOOD ORDERABLES F inal Result Performing Organization Address City/State/[facility] Co de Phone Number BEN [address] [facility] Department [place] [address] from Last 3 Months Insurance [facility] CHOICE PLUS [facility] HMO/PPO Address: [facility] [address] [place] [address] Care Teams Proof Technician Helper Relationship Specialty Start Date End Date Unknown, Notinfile PCP - General 01/27/24
== END 2024-12-06 13:19 | disposition home or self-care (01) ==
PROVIDERS: PCP Family Medicine; Visit Provider Obstetrics & Gynecology
DX: N83.209 Unspecified ovarian cyst, unspecified side (principal)
CPT/HCPCS: 36415; 86301; 86304

== ENCOUNTER 2025-01-17 01:29 | Day surgery (SDC) | payer OTHER, SELFPAY ==
[2025-01-05 14:20] VITALS: BMI 21.7
--- NOTE | 2025-01-05 14:25 | PC.NURSE ---
Report to the Outpatient Waiting Room, entrance under the green pavilion located off [facility], at time 0600 on date 01/17/25. Planned Procedure Time: 0730.? Time changes happen often and if your time is changed the preop area will call you the afternoon before. - You and your visitor will be asked to self-screen and do not enter if you have any COVID symptoms. Please call surgeon if you need to reschedule. - A mask is optional within the hospital at this time. Patients may have clear liquids (water, carbonated beverages, clear teas, apple juice) until 3 hours prior to surgery with a maximum of 20 ounces. - No food from midnight until time of surgery and no smoking, or chewing tobacco (or any form of nicotine). No chewing gum, candy or mints. - Infants may have breast milk until 4 hours before surgery, formula 6 hours prior to surgery. - Children will be allowed to drink immediately following surgery.? If applicable, please bring a bottle or sippy cup to assist with drinking. Juice, water, soda, and popsicles are readily available.? For infants on formula, please bring formula the day of surgery.? Pacifiers are allowed. Take only the following medications with a SIP of water on the morning of surgery: ____n/a___ DO NOT STOP ANY OF YOUR OTHER PRESCRIPTION MEDICATIONS PRIOR TO SURGERY EXCEPT THE FOLLOWING Hold all vitamins and supplements for 3 days per anesthesiologist. Medications to discontinue per physician n/a Date to take last dose Please no make-up, nail lithuanian, hairspray, perfume, deodorant, or body powder the day of surgery.? No jewelry (including any body piercings) or valuables the day of surgery, leave them at home.? Please take a shower or bath the night before, or the morning of, surgery with an antibacterial soap.? Wear comfortable, loose fitting clothing.? Children are encouraged to wear pajamas. - Jewelry must be removed prior to entering the operating room.? Rings and piercings that are not removed may be cut off. - The hospital will not accept responsibility for valuables.? - Please leave all valuables, including medications, at home the day of surgery. If you are going home after surgery, a licensed crew truck driver must drive you home.? - NO public transportation without another adult if you receive anesthesia. - We recommend that an adult stay with you for 24 hours following discharge. - We also recommend that you do not drive, make important decision, drink alcoholic beverages, or take any drugs that were not prescribed by your health care provider for at least 24 hours after your discharge time. For Pediatric surgeries, we recommend two adults accompany the child home. Follow any additional instructions given to you from your surgeon. Telephone instructions given to __patient__and asked if any additional questions and then verbalized understanding. Patient advised to call surgeon office or pre surgery nurse liaison [phone] if any additional questions.
--- NOTE | 2025-01-16 19:24 | PM.IMHP ---
H&P: HPI History of Present Illness Date/Time: 01/16/25 19:24 Chief Complaint: pelvic pain Narrative: Nancy is a 24yo G0, who presents for surigcal management of an ovarina cyst. She was seen in 09/2024 for [employer] and had been endorsing RLQ pain and painful periods. She reports the pain is worse when she needs to use the restroom, but also notices sharp, random pains with certain movements/stretching. On [facility] US, 7cm right ovarian cyst was noted. She had f/u US 6wks later and cyst has remained unchanged (simple 7cm). She reports noticing more pains, maybe because she knows she has a cyst, but does have very sharp random pains that worry her. Review of Systems Constitutional: Constitutional: Denies chills, Denies fever(s) and Denies headache(s) Eyes: Eyes: Denies change in vision ENT: Denies dizziness and Denies headache(s) Cardiovascular: Cardiovascular: Denies chest pain and Denies dyspnea Respiratory: Respiratory: Denies cough and Denies dyspnea Gastrointestinal: Gastrointestinal: Denies abdominal pain and Denies change in stool character Genitourinary: Genitourinary: Denies abnormal menses, Reports dysmenorrhea, Reports pelvic pain, Denies vaginal discharge, Denies vaginal odor and Denies vaginal pruritus Neurologic: Denies dizziness and Denies headache(s) Psychiatric: Psychiatric: Denies anxiety and Denies depression [facility] Past Medical History Medical History (Updated 01/16/25 @ 19:27 by Lay Becerra MD) Ovarian cyst Irritable bowel syndrome (IBS) Surgical History Surgical History H/O elbow surgery 2013 Family History Family History Mother Asthma Hypertension Sibling Asthma Grandparent Breast cancer Diabetes mellitus Cerebrovascular accident Heart disease Social History Social History (Updated 12/03/24 @ 08:51 by Scott Berumen MA) Smoking status: Never smoker Alcohol intake: current Alcohol use details: rarely Substance use: never Do You Feel Safe in your Home?: Yes Lack of Transportation: No Lack of Food: Never True Current Housing: I Have Housing Concerned About Future Housing: No Difficulty Paying Gas/Electric Bills: No Difficulty Paying for Meds: No Currently Unemployed: No Education: Master's Degree or Higher Difficulty w/ Childcare or Family Care: No Living arrangements: with family Occupation/Education: occupation 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 Gender identity (if verbalized by the patient): Female Sexual Orientation (if Verbalized by the Patient): Straight or Heterosexual Spiritual care concerns: No Meds Home Medications and Allergies Home Medications ?Medication ?Instructions ?Recorded ?Confirmed ?Type No Home Medications 09/21/24 01/05/25 History Allergies Allergy/AdvReac Type Severity Reaction Status Date / Time AMOXICILLIN TRIHYDRATE Allergy Other Uncoded 01/05/25 14:28 POTASSIUM CLAVULANATE Allergy Rash Uncoded 01/05/25 14:28 Exam Const: General: cooperative, healthy appearing, comfortable and no acute distress Orientation/consciousness: patient oriented x3 Resp: Effort & Inspection: normal respiratory effort Cardio: Rate: regular rate GI: Inspection: normal to inspection GI Palp: No abdominal tenderness and Yes Soft to palpation : Other: deferred to OR Skin: General skin exam: normal color Neuro: General: patient oriented x3 Extrem: General: normal to inspection Psych: Appearance: grossly normal Affect: normal affect Attitude: cooperative Assessment and Plan Assessment and plan (1) Ovarian cyst: Qualifiers: Laterality: unspecified laterality Qualified Code(s): N83.209 - Unspecified ovarian cyst, unspecified side Code(s): N83.209 - Unspecified ovarian cyst, unspecified side Status: Acute Plan - We will proceed with laparoscopic unilateral ovarian cystectomy, possible lysis of adhesions, possible chromopertubation - risks and benefits discussed in detail
[2025-01-17] VITALS (9 sets, daily range): BP systolic 119–142; BP diastolic 69–87; PULSE 63–80; RESP 14–18; TEMP 36.1–36.4; O2SAT 100
[2025-01-17 06:23] LABS: BEDSIDEPREGUCG Negative (Negative)
[2025-01-17] MEDS: LACTATED RINGERS 1,000 ML 30 ML IV CONT ×2 (06:25→08:48)
[2025-01-17] MEDS: ACETAMINOPHEN 500 MG TABLET 1000 MG PO (06:30)
[2025-01-17] MEDS: KETOROLAC 15 MG/ML VIAL (*BKC) IV PUSH (06:30)
--- NOTE | 2025-01-17 06:37 | WPDANESEPPF ---
Anes - Initial Pre Proc Eval Procedure: Operation Date: 01/17/25 07:30 Proposed Procedures p Laparoscopic Right Ovarian Cystectomy - Lay Becerra MD Date/Time: 01/17/25 06:37 Surgeon: Lay Becerra MD Pre Op Diagnosis: right ovarian cyst Patient Data Age: 24 Gender: F Height: 1.68 m Weight: 62.1 kg Last Vital Signs Temp 36.4 C 01/17/25 06:15 Pulse 73 01/17/25 06:15 Resp 18 01/17/25 06:15 BP 119/69 01/17/25 06:15 Pulse Ox 100 01/17/25 06:15 O2 Del Method Room Air 01/17/25 06:15 Allergies Allergy/AdvReac Type Severity Reaction Status Date / Time AMOXICILLIN TRIHYDRATE Allergy Other Uncoded 01/17/25 06:15 POTASSIUM CLAVULANATE Allergy Rash Uncoded 01/17/25 06:15 Home Medications ?Medication ?Instructions ?Recorded ?Confirmed ?Type No Home Medications 09/21/24 01/05/25 History Laboratory Tests 01/17/25 06:20 POC Urine HCG, Qual Negative (Negative) Patient hx anesthesia problems: none Family hx anesthesia problems: none Results Review: All pre-operative results and documents have been reviewed as part of the pre-operative evaluation. [facility] Past Medical History Medical History Ovarian cyst Irritable bowel syndrome (IBS) Surgical History Surgical History H/O elbow surgery 2012 Family History Family History Mother Asthma Hypertension Sibling Asthma Grandparent Breast cancer Diabetes mellitus Cerebrovascular accident Heart disease Social History Social History Smoking status: Never smoker Alcohol intake: current Alcohol use details: rarely Substance use: never Do You Feel Safe in your Home?: Yes Lack of Transportation: No Lack of Food: Never True Current Housing: I Have Housing Concerned About Future Housing: No Difficulty Paying Gas/Electric Bills: No Difficulty Paying for Meds: No Currently Unemployed: No Education: Master's Degree or Higher Difficulty w/ Childcare or Family Care: No Living arrangements: with family Occupation/Education: occupation 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 Gender identity (if verbalized by the patient): Female Sexual Orientation (if Verbalized by the Patient): Straight or Heterosexual Spiritual care concerns: No Anes - Eval Final PreProcedure Day of Procedure 01/17/25 06:37 Patient weight: normal Heart: regular rate and rhythm Lungs: clear to auscultation Airway: Mallampati scale class 1 Neurological: alert and oriented Last oral intake: >/= 8 hours ASA classification: I Emergent: no Anesthetic plan: proceed Anesthesia type and monitoring: general ETT and standard monitoring Results Review: All pre-operative results and documents have been reviewed as part of the pre-operative evaluation. Informed Consent: The patient's anesthetic plan and its attendant risks and benefits were discussed with the patient/family/POA. Questions were solicited and answers provided to the satisfaction of the patient/family/POA.
--- NOTE | 2025-01-17 06:59 | WPDHPUPDATE1 ---
History and Physical Update Update Date/Time: 01/17/25 06:59 History and Physical has been reviewed, including an updated exam of the patient. There are NO changes in the patient's condition. Risks, benefits, and alternatives have been discussed and questions answered. Patient agrees to proceed with laparoscopic unilateral ovarian cystectomy, possible lysis of adhesions, possible chromopertubation.
--- NOTE | 2025-01-17 07:19 | SUR.PREOP ---
Questions regarding consent discussed with Dr. Becerra. Per Dr. Becerra consent should read unilateral not right. also stated patient side will NOT be marked since the consent reads unilateral . Discussed with administrator of home health, Nataly WATSON.
[2025-01-17] MEDS: BUPIVACAINE/EPINEPHRINE 0.5% 30 ML VIAL 10 ML INFILTRATE (07:22)
[2025-01-17] MEDS: METHYLENE BLUE 0.5% INJ 10 ML AMPULE 20 ML IRRIGATION (08:06)
--- NOTE | 2025-01-17 08:47 | W.PM.PROC2 ---
Procedure Note - Detailed Date of Procedure 01/17/25 Pre-op Diagnosis right ovarian cyst Post-op Diagnosis Other (right paratubal cyst) Procedure Performed Laparoscopic right paratubal cystectomy, chromopertubation Surgeon Lay Becerra MD Anesthesia General and Local (20cc of 0.5% Marcaine w/ epi) Findings Uterus sounded to 7.5cm, right paratubal cyst ~10cm, normal ovaries bilaterally, normal left fallopian tube, normal uterus. Bilateral fallopian tubes with spillage of methylene blue at end of case. Good hemostasis at end of case. Cyst placed in bag and ruptured; cyst fluid clear and collected and sent for cytology. Description of Procedure Nancy was taken to the operating room where she was placed under general endotracheal anesthesia without complications. She was then prepped and draped in the usual sterile fashion in the dorsal lithotomy position with her legs in low Julian stirrups and her arms tucked at her side with a strap over her chest. A time-out was performed and no preoperative antibiotics were indicated. My attention was turned down below where her bladder was drained via straight catheterization. A bivalve speculum was then placed within the vagina where the cervix was easily identified. The anterior lip of the cervix was grasped with a single-tooth tenaculum, the uterus was sounded, it was serially dilated and a diagnostic uterine manipulator was placed without complications. My gloves were changed and my attention was turned to her abdomen. Once it was verified that an OG was in place, an incision was made in palmers point, and a 5 mm trocar was placed under direct visualization without complications. Once intra-abdominal placement was confirmed the abdomen was insufflated with carbon dioxide gas. She was then placed in Trendelenburg and two additional 5 mm ports were placed in the left and right lower quadrants under direct visualization without complications. The above findings were noted. The right cyst was located and noted to be in the mesosalpinx underneath the fallopian tube (not ovarian). The fallopian tube appeared normal without any abnormal appearance. The overlying mesosalpinx on the paratubal cyst was grasped and using the LigaSure device the tissue was coagulated and then transected. The pneumoperitoneum then helped to dissect the cyst from the tissue and the mesosalpinx was slowly and carefully dissected away from the cyst using traction/countertraction (paying close attention to avoid damaging the fallopian tube). The tissue was transected circumferentially around the cyst and it was released from the mesosalpinx and tube. Good hemostasis was noted. The degroot's point port was upsized to a 10 mm port under direct visualization without complications. A 10 cm bag was then placed with the and the abdomen and the peritoneal cyst was placed within the bag. The bag was then brought up to the skin surface. Using a syringe and needle the cyst was popped and approximally 30 cc of fluid was collected and sent for cytology. The remaining cyst fluid was removed and the bag containing the cyst was easily removed from the abdomen and sent to pathology. Methylene blue was then pushed through the uterine manipulator and spillage of the blue methylene fluid was seen from bilateral fallopian tubes (pictures of each tube spilling fluid was obtained). Good hemostasis was noted. The Riccardo Castaneda was then used to reapproximate the 10 mm port. Once stitch using 0 Vicryl was placed and no further pneumoperitoneum was released from the incision. All instruments were removed from the abdomen. The insufflation was released and the trocars were removed. The 3 laparoscopic incision sites were reapproximated using 4-0 Monocryl and covered with Dermabond. The incisions were then infiltrated using 0.5% Marcaine with epinephrine. The uterine manipulator was removed. Sponge, lap, instrument, and needle counts were correct at the end of the procedure. Patient was awoken from general anesthesia and taken to recovery with plans of same-day discharge home. Estimated Blood Loss 10 IV Fluids 1,400 Urine Output 100 Drains No Packing No Pathology Yes (right paratubal cyst, right paratubal cyst fluid) Complications No immediate complications Condition Stable Disposition Same day [facility] Billing Surgery - Charge Forward: Surgery Billing
[2025-01-17] MEDS: oxyCODONE HCL (*CRX) 5 MG TAB IR PO (10:24)
== END 2025-01-17 10:37 | disposition home or self-care (01) ==
PROVIDERS: Visit Provider Obstetrics & Gynecology
PROC: (CPT 49320; principal; 2025-01-17 07:30)
DX: N83.8 Other noninflammatory disorders of ovary, fallopian tube and broad ligament (principal)
CPT/HCPCS: 58662; 88108; 88305; A9270; J0330; J1100; J1885; J2250; J2405; J2704; J3010; J7030; J7120; Q9968